=== PATIENT | female | born 1970 | race Caucasian/White ===

== ENCOUNTER 2017-05-01 23:35 | Emergency (ER) | payer MEDICAID ==
[~2017-05-01] VITALS: Ht 177.8 cm; Wt 100.0 kg
[2017-05-02] VITALS: BP 100/55
[2017-05-02] MEDS ORDERED: THIAMINE 100MG TABLET PO ONE (01:00)
[2017-05-02] MEDS ORDERED: DIAZEPAM 5 MG TABLET PO ONE (01:00)
[2017-05-02] MEDS ORDERED: ONDANSETRON ODT 4 MG PO ONE (01:00)
== END 2017-05-02 01:46 | disposition home or self-care (01) ==
LOC: ED 05-02 01:40
DX: F10.220 Alcohol dependence with intoxication, uncomplicated (principal); I10 Essential (primary) hypertension; J45.909 Unspecified asthma, uncomplicated; F41.1 Generalized anxiety disorder; Y90.9 Presence of alcohol in blood, level not specified; Z72.89 Other problems related to lifestyle
CPT/HCPCS: 99284; Q0162

== ENCOUNTER 2019-08-10 12:08 | Emergency (ER) | payer MEDICAID ==
[~2019-08-10] VITALS: Ht 172.7 cm; Wt 113.0 kg
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
[2019-08-10] MEDS ORDERED: ZIPRASIDONE 20 MG INJ IM ONE (12:30)
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
[2019-08-10 12:51] LABS: BASOPHILS # (AUTO) 0.04 x10^3/uL (0-0.1); BASOPHILS % (AUTO) 1 % (0-1); EOSINOPHILS # (AUTO) 0.09 x10^3/uL (0-0.4); EOSINOPHILS % (AUTO) 1 % (1-7); LYMPHOCYTES # (AUTO) 2.74 x10^3/uL (1-3.4); LYMPHOCYTES % (AUTO) 37 % (22-44); MD NO; MEAN CORPUSCULAR HEMOGLOBIN 30.2 pg (27.0-34.8); MEAN CORPUSCULAR HGB CONC 33.4 g/dL (32.4-35.8); MEAN CORPUSCULAR VOLUME 90.5 fL (80-100); MEAN PLATELET VOLUME 7.6 fL (7.4-10.4); MONOCYTES # (AUTO) 0.48 x10^3/uL (0.2-0.8); MONOCYTES % (AUTO) 6 % (2-9); NEUTROPHILS # (AUTO) 4.08 x10^3/uL (1.8-6.8); NEUTROPHILS % (AUTO) 55 % (42-75); PLATELET COUNT 214 x10^3/uL (130-400)
--- NOTE | 2019-08-10 12:54 | NUR ---
SITTER MONITORING FROM [facility]
[2019-08-10] MEDS ORDERED: PLEASE ENTER HEIGHT AND WEIGHT MC SCH (13:00)
[2019-08-10 13:01] LABS: ALANINE AMINOTRANSFERASE 62 U/L (12-78); ALBUMIN 3.4 g/dL (3.4-5.0); ANION GAP 13 mmol/L (5-15); CALCIUM 8.2 mg/dL (8.5-10.1); CHLORIDE 110 mmol/L (98-107); CREATININE 0.93 mg/dL (0.55-1.02); SALICYLATE LEVEL 1.7 mg/dL (2.8-20.0)
[2019-08-10 13:03] LABS: ALKALINE PHOSPHATASE 112 U/L (45-117); BILIRUBIN,TOTAL 0.3 mg/dL (0.2-1.0); TOTAL PROTEIN 7.1 g/dL (6.4-8.2)
--- NOTE | 2019-08-10 13:45 | NUR ---
PT REMAINS AGITATED, SCREAMING CONSTANTLY, CONTINUES TO THRASH ON GURNEY. ORDERS FOR ADDITIONAL MEDICATIONS RECIEVED, PT MEDICATED PER AUG. CONT PULSE OX ON, BP MONITORING.
[2019-08-10] MEDS ORDERED: DIPHENHYDRAMINE 50 MG/ML, 1ML ONE (13:53)
[2019-08-10] MEDS ORDERED: LORazepam 2 MG/ML, 1ML ONE (13:54)
[2019-08-10] MEDS ORDERED: DIPHENHYDRAMINE 50 MG/ML, 1ML IM ONE (14:00)
[2019-08-10] MEDS ORDERED: LORazepam 2 MG/ML, 1ML IM ONE (14:00)
[2019-08-10] MEDS ORDERED: methylPREDNISolone SOD SUCC 125 MG/2 ML ONE (14:35)
[2019-08-10 15:10] LABS: AMPHETAMINE SCREEN, URINE Negative (Negative); BARBITURATE SCREEN, URINE Negative (Negative); BENZODIAZEPINE SCREEN, URINE Negative (Negative); CANNABINOID SCREEN, URINE Positive (Negative); COCAINE SCREEN, URINE Negative (Negative); METHADONE SCREEN, URINE Negative (Negative); OPIATE SCREEN, URINE Negative (Negative)
--- NOTE | 2019-08-10 15:10 | NUR ---
SECURITY CALLED TO REPOSITION RESTRAINS FOR COMFORT AND SAFTY. PT ASSISTED WITH BEDPAN USE. UDS COLLECTED AND SENT
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
--- NOTE | 2019-08-10 16:30 | NUR ---
PT BEGINNING TO SCREAM OUT IN THE BERNARD AGAIN. THRASHING IN BED. ADDITINAL PRN MEDICATION ORDERED. BEHAVIORAL RESTRAINTS ORDER CONTINUED PER ERMD
[2019-08-10] MEDS ORDERED: HALOPERIDOL 5 MG/ML IM PRN (17:00)
[2019-08-10] MEDS ORDERED: HALOPERIDOL 5 MG/ML ONE (17:02)
[2019-08-10 17:08] VITALS: BP 141/89
--- NOTE | 2019-08-10 18:05 | NUR ---
DISCUSSED POC WITH MD, PLAN TO BREATHALYZE PT APPROX 1999. WHEN SOBER TELE PSYCH
--- NOTE | 2019-08-10 18:56 | NUR ---
REPORT FROM JANUSZ PEACE. PROVIDED PT WITH WATER. SAFETY PRECAUTIONS IN PLACE.
--- NOTE | 2019-08-10 19:43 | NUR ---
PROVIDED PT WITH WATER. ERP AT BEDSIDE, SECURITY AT BEDSIDE FOR RESTRAINTS TO REMOVE RESTRAINTS.
== END 2019-08-10 19:58 | disposition home or self-care (01) ==
LOC: ED 19:52
DX: S40.011A Contusion of right shoulder, initial encounter (principal); S40.021A Contusion of right upper arm, initial encounter; S20.211A Contusion of right front wall of thorax, initial encounter; I10 Essential (primary) hypertension; Z87.891 Personal history of nicotine dependence; F10.220 Alcohol dependence with intoxication, uncomplicated; Y90.0 Blood alcohol level of less than 20 mg/100 ml; Y04.8XXA Assault by other bodily force, initial encounter; Y93.89 Activity, other specified; Y92.098 Other place in other non-institutional residence as the place of occurrence of the external cause; Y99.8 Other external cause status
CPT/HCPCS: 36415; 71045; 73030; 80053; 80307; 85025; 96372; 99284; J1200; J1630; J2060; J3486

== ENCOUNTER 2020-01-24 07:58 | Emergency (ER) | payer MEDICAID ==
[~2020-01-24] VITALS: Ht 177.8 cm; Wt 148.0 kg
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
--- NOTE | 2020-01-24 08:07 | NUR ---
PER REPORT PT WAS GIVEN 1000MG TYLENOL AND 600 IBU PRIOR TO ARRIVAL.
--- NOTE | 2020-01-24 09:01 | NUR ---
PT BACK FROM IMAGING
[2020-01-24 09:18] VITALS: BP 137/90
--- NOTE | 2020-01-24 09:18 | NUR ---
PT RESTING ON SHAHZAD. NIGEL. NO OTHER NEEDS REQUESTED AT THIS TIME.
--- NOTE | 2020-01-24 09:56 | NUR ---
BEDSIDE REPORT TO NATA DELA CRUZ.
== END 2020-01-24 11:13 | disposition home or self-care (01) ==
LOC: ED 09:49
DX: S82.61XA Displaced fracture of lateral malleolus of right fibula, initial encounter for closed fracture (principal); I10 Essential (primary) hypertension; J45.909 Unspecified asthma, uncomplicated; W06.XXXA Fall from bed, initial encounter; Y93.89 Activity, other specified; Y92.89 Other specified places as the place of occurrence of the external cause; Y99.8 Other external cause status
CPT/HCPCS: 29515; 99284